=== PATIENT | female | born 1965 | race Hispanic/Latino ===

== ENCOUNTER 2018-04-17 11:03 | Outpatient (CLI) | payer BC | END 2018-04-17 11:04 | disposition home or self-care (01) | LOC: BICRAD 11:03 | PROVIDERS: ATTEND Family Medicine | DX: S13.4XXA Sprain of ligaments of cervical spine, initial encounter (principal); M47.894 Other spondylosis, thoracic region | CPT/HCPCS: 72072 ==

== ENCOUNTER 2019-01-19 08:01 | Outpatient (CLI) | payer BC ==
--- NOTE | 2019-01-19 09:08 | MMO ---
Bilateral MAMMO Bilat Screen [facility]. CLINICAL HISTORY: Patient is 53 years old and is seen for screening. The patient has no family history of breast cancer. The patient has no personal history of cancer. VIEWS: The views performed were: bilateral craniocaudal with tomosynthesis and bilateral mediolateral oblique with tomosynthesis. FILMS COMPARED: The present examination has been compared to prior imaging studies performed at [facility] on 04/07/2005, 04/06/2006, 02/15/2008, 03/05/2009, 03/12/2010, 03/17/2011, 03/17/2012, 03/23/2013, 04/05/2014, 04/25/2015, 05/07/2016 and 05/20/2017. MAMMOGRAM FINDINGS: There are scattered fibroglandular densities. There are stable benign appearing calcifications seen in both breasts. There are no suspicious masses, suspicious calcifications, or new areas of architectural distortion. IMPRESSION: THERE IS NO MAMMOGRAPHIC EVIDENCE OF MALIGNANCY. A ROUTINE FOLLOW-UP MAMMOGRAM IN 1 YEAR IS RECOMMENDED. THE RESULTS OF THIS EXAM WERE SENT TO THE PATIENT. ACR BI-RADS Category 2 - Benign finding MAMMOGRAPHY NOTE: 1. A negative mammogram report should not delay a biopsy if a dominant of clinically suspicious mass is present. 2. Approximately 10% to 15% of breast cancers are not detected by mammography. 3. Adenosis and dense breasts may obscure an underlying neoplasm.
== END 2019-01-19 08:02 | disposition home or self-care (01) ==
LOC: BICMAMMO 08:01
PROVIDERS: ATTEND Family Medicine
DX: Z12.31 Encounter for screening mammogram for malignant neoplasm of breast (principal)
CPT/HCPCS: 77063; 77067

== ENCOUNTER 2020-03-14 09:01 | Outpatient (CLI) | payer BC, OTHER ==
--- NOTE | 2020-03-14 13:28 | MMO ---
Bilateral MAMMO Bilat Screen [facility]. CLINICAL HISTORY: Patient is 54 years old and is seen for screening. The patient has no family history of breast cancer. The patient has no personal history of cancer. VIEWS: The views performed were: bilateral craniocaudal with tomosynthesis and bilateral mediolateral oblique with tomosynthesis. FILMS COMPARED: The present examination has been compared to prior imaging studies performed at [facility] on 04/25/2015, 05/07/2016, 05/20/2017 and 01/19/2019. This study has been interpreted with the assistance of computer-aided detection. MAMMOGRAM FINDINGS: The breasts are heterogeneously dense, which could obscure a lesion on mammography. There are no suspicious masses, suspicious calcifications, or new areas of architectural distortion. IMPRESSION: THERE IS NO MAMMOGRAPHIC EVIDENCE OF MALIGNANCY. A ROUTINE FOLLOW-UP MAMMOGRAM IN 1 YEAR IS RECOMMENDED. THE RESULTS OF THIS EXAM WERE SENT TO THE PATIENT. ACR BI-RADS Category 1 - Negative MAMMOGRAPHY NOTE: 1. A negative mammogram report should not delay a biopsy if a dominant of clinically suspicious mass is present. 2. Approximately 10% to 15% of breast cancers are not detected by mammography. 3. Adenosis and dense breasts may obscure an underlying neoplasm. Reported by: MICHAEL JONES MD Electonically Signed: [id number]
== END 2020-03-14 09:02 | disposition home or self-care (01) ==
LOC: BICMAMMO 09:01
PROVIDERS: ATTEND Family Medicine
DX: Z12.31 Encounter for screening mammogram for malignant neoplasm of breast (principal)
CPT/HCPCS: 77063; 77067

== ENCOUNTER 2020-11-17 13:51 | Outpatient (CLI) | payer BC ==
--- NOTE | 2020-11-17 14:40 | RAD ---
LEFT KNEE 2 VIEWS: HISTORY: Knee pain. FINDINGS: Joint spaces are maintained and appear symmetric. No significant degenerative change. No joint effu nehemias. No osseous abnormality. IMPRESSION: Unremarkable left knee. POS: AGW
--- NOTE | 2020-11-17 14:41 | RAD ---
RIGHT KNEE 2 VIEWS: Date: 11/17/2020 HISTORY: Knee pain. FINDINGS: Joint spaces are symmetric and normally maintained. No significant degenerative change. Minimal spurr ing seen from the superior patella on the lateral view. No joint effusion. No osseous abnormality. IMPRESSION: Minimal spurring from the posterior patella. Right knee otherwise unremarkable. POS: AGW
== END 2020-11-17 13:52 | disposition home or self-care (01) ==
LOC: BICRAD 13:51
PROVIDERS: ATTEND Internal Medicine Rheumatology
DX: M25.561 Pain in right knee (principal); M25.562 Pain in left knee; M76.9 Unspecified enthesopathy, lower limb, excluding foot

== ENCOUNTER 2021-03-27 12:21 | Outpatient (CLI) | payer BC | END 2021-03-27 12:22 | disposition home or self-care (01) | LOC: BICMAMMO 12:21 | PROVIDERS: ATTEND Family Medicine | DX: Z12.31 Encounter for screening mammogram for malignant neoplasm of breast (principal) | CPT/HCPCS: 77063; 77067 ==

== ENCOUNTER 2022-05-07 12:33 | Outpatient (CLI) | payer BC | END 2022-05-07 12:34 | disposition home or self-care (01) | LOC: BICMAMMO 12:33 | PROVIDERS: ATTEND Nurse Practitioner Family | DX: Z12.31 Encounter for screening mammogram for malignant neoplasm of breast (principal) | CPT/HCPCS: 77063; 77067 ==

== ENCOUNTER 2023-05-31 08:50 | Outpatient (CLI) | payer BC | END 2023-05-31 08:51 | disposition home or self-care (01) | LOC: BICMAMMO 08:50 | PROVIDERS: ATTEND Family Medicine | DX: Z12.31 Encounter for screening mammogram for malignant neoplasm of breast (principal) | CPT/HCPCS: 77063; 77067 ==

== ENCOUNTER 2024-06-27 13:46 | Outpatient (CLI) | payer BC | END 2024-06-27 13:47 | disposition home or self-care (01) | LOC: BICMAMMO 13:46 | PROVIDERS: ATTEND Family Medicine | DX: Z12.31 Encounter for screening mammogram for malignant neoplasm of breast (principal) | CPT/HCPCS: 77063; 77067 ==

== ENCOUNTER 2025-06-28 07:59 | Outpatient (CLI) | payer BC | END 2025-06-28 08:00 | disposition home or self-care (01) | LOC: BICMAMMO 07:59 | PROVIDERS: ATTEND Family Medicine | DX: Z12.31 Encounter for screening mammogram for malignant neoplasm of breast (principal) | CPT/HCPCS: 77063; 77067 ==

== ENCOUNTER 2025-08-14 16:00 | Outpatient (CLI) | payer BC | END 2025-08-14 16:01 | disposition home or self-care (01) | LOC: BICRAD 16:00 | PROVIDERS: ATTEND Family Medicine | DX: R76.12 Nonspecific reaction to cell mediated immunity measurement of gamma interferon antigen response without active tuberculosis (principal) | CPT/HCPCS: 71046 ==

== ENCOUNTER 2025-09-12 10:53 | Outpatient (CLI) | payer BC | END 2025-09-12 10:54 | disposition home or self-care (01) | LOC: BICRAD 10:53 | PROVIDERS: ATTEND Internal Medicine Rheumatology | DX: M54.2 Cervicalgia (principal); M50.821 Other cervical disc disorders at C4-C5 level; M50.822 Other cervical disc disorders at C5-C6 level; M47.812 Spondylosis without myelopathy or radiculopathy, cervical region; M48.02 Spinal stenosis, cervical region | CPT/HCPCS: 72052 ==